=== PATIENT | female | born 1990 | race Caucasian/White ===

== ENCOUNTER 2016-06-15 03:21 | Emergency (ER) | payer OTHER ==
[~2016-06-15] VITALS: Ht 167.6 cm; Wt 79.5 kg
[2016-06-15 03:25] VITALS: TEMP 98.7
[2016-06-15] MEDS ORDERED: SINGULAIR 110 MG/TAB PO (03:49)
[2016-06-15] MEDS ORDERED: INDERAL40 MG PO (03:49)
[2016-06-15] MEDS ORDERED: ZOFRAN 4MG T4 MG/TAB PO (03:50)
[2016-06-15] MEDS ORDERED: IMITREX50 MG PO (03:50)
[2016-06-15] MEDS ORDERED: IBU800 M1 PO (03:50)
[2016-06-15] MEDS ORDERED: PRENATAL (03:51)
[2016-06-15 04:47] VITALS: BP 128/78; PULSE 78
[2016-07-28] MEDS ORDERED: ZYRTEC 10MG10 MG PO (09:10)
[2016-07-28] MEDS ORDERED: PHENERGAN 25 TA25 MG PO (09:11)
== END 2016-06-15 04:48 | disposition home or self-care (01) ==
LOC: COL.ER 03:21
DX: G43.909 Migraine, unspecified, not intractable, without status migrainosus (principal)
CPT/HCPCS: J1885; J2550

== ENCOUNTER → 2016-07-28 | Emergency (ER) | payer OTHER ==
[~2016-07-28] VITALS: Ht 167.6 cm; Wt 86.8 kg
[~2016-07-28] MED LIST: IBU800 M1 PO; IMITREX50 MG PO; INDERAL40 MG PO; PHENERGAN 25 TA25 MG PO; PRENATAL; SINGULAIR 110 MG/TAB PO; ZOFRAN 4MG T4 MG/TAB PO; ZYRTEC 10MG10 MG PO
[2016-07-28 09:55] LABS: BASO % 0.2 % (0.0-2.0); EOS # 0.1 (0.0-0.7); EOS % 2.5 % (0-4.0); GRAN # 3.8 (1.4-6.5); GRAN % 72.4 % (42.2-75.2); HEMATOCRIT 39.4 % (37.0-47.0); HEMOGLOBIN 13.7 g/dl (12.5-16.0); LYMPH # 0.8 (1.2-3.4); LYMPH % 15.4 % (20.0-51.0); MEAN CELL VOLUME 89 fl (80.0-100.0); MEAN CORPUSCULAR HEMOGLOBIN 31 pg (27.0-31.0); MEAN CORPUSCULAR HGB CONC 35 g/dl (33.0-37.0); MEAN PLATELET VOLUME 9.3 fl (7.4-10.4); MONO # 0.5 (0.1-0.6); MONO % 9.1 % (1.7-9.3); PLATELET COUNT 180 K/mm3 (130-400); RED BLOOD COUNT 4.41 M/mm3 (4.10-5.30); REDCELL DISTRIBUTION WIDTH-CV 12.7 % (11.5-14.5); WHITE BLOOD COUNT 5.3 K/mm3 (4.8-10.8)
[2016-07-28 10:00] LABS: PH 5 (5-8); SQUAMOUS EPITHELIAL 0-2 /hpf; URINE APPEARANCE Clear; URINE BACTERIA None Seen /hpf; URINE BILIRUBIN Negative (NEGATIVE); URINE BLOOD Negative (NEGATIVE); URINE COLOR Yellow; URINE GLUCOSE Negative (NEGATIVE); URINE KETONE Negative (NEGATIVE); URINE RBC 0-2 /hpf; URINE UROBILINOGEN Negative (NEGATIVE); URINE WBC 0-2 /hpf
[2016-07-28 10:10] LABS: ADJUSTED CALCIUM 8.8 mg/dL (8.4-10.2); ALBUMIN 4.1 gm/dL (3.5-5.0); C-REACTIVE PROTEIN 3.6 mg/dL (0.0-0.9); CALCIUM 8.9 mg/dL (8.4-10.2); CREATININE, serum 0.74 mg/dL (0.52-1.25); POTASSIUM 3.8 mmol/L (3.4-5.0); TOTAL PROTEIN 7.1 gm/dL (6.4-8.2)
[2016-07-28 10:55] VITALS: BP 100/84; PULSE 80; TEMP 99.1
[2016-07-28 12:05] LABS: CHLAMYDIA/TRACH by PCR Female NOT DETECTED; NEISSERIA GON by PCR Female NOT DETECTED
== END ==
LOC: COL.ER 08:55
PROVIDERS: Physician Assistant
DX: R10.12 Left upper quadrant pain (principal)

== ENCOUNTER → 2019-12-20 | Outpatient (CLI) | payer SELFPAY | LOC: ZCOL.LAB 21:54 | DX: Z20.828 Contact with and (suspected) exposure to other viral communicable diseases (principal) ==